=== PATIENT | female | born 1960 | race Caucasian/White ===

== ENCOUNTER 2022-06-26 09:04 | Emergency (ER) | payer BC, SELFPAY ==
[2022-06-26] VITALS (16 sets, daily range): BP systolic 113–130; BP diastolic 55–78; PULSE 87–103; RESP 12–25; TEMP 36.8; O2SAT 96–100
--- NOTE | ~2022-06-26 | CT_ITS ---
EXAMINATION: CT abdomen pelvis w con DATE: 06/26/2022 11:11 INDICATION: Diarrhea. Left upper quadrant abdominal pain. TECHNIQUE: Computed tomography (CT) of the abdomen and pelvis was performed with 100 mL Omnipaque 350 intravenous contrast. Automated exposure control and iterative reconstruction technique were employe d. The dose-length product was 916.56 mGy-cm. COMPARISON: None. FINDINGS: The visualized portions of the lung bases demonstrate mild atelectasis. No pleural effusion . The heart size is normal. No pericardial effusion. There is a 4 mm cyst in the liver. Calcification s in the spleen are consistent with old granulomatous disease. The gallbladder, pancreas, adrenal gla nds, and left kidney are normal. There is a 10 mm cyst in right kidney. There is a 4.5 cm cyst in rig ht ovary. There are no dilated loops of bowel. The appendix is normal. There is a 9 mm subserosal ek[place] rine fibroid. There are no pathologically enlarged lymph nodes. There is no free intraperitoneal flui d. There is severe lumbar spondylosis. IMPRESSION: 1. 4.5 cm cyst in right ovary, likely benign. Pelvis ultrasound is recommended in one year. Reviewed, dictated and finalized at location [facility]
[2022-06-26 09:26] LABS: Appearance Urine Clear (Clear); Bilirubin Urine Negative (Negative); Blood Urine 1+ (Negative); Color Urine Yellow (Yellow); Glucose Urine UA Negative (Negative); Ketones Urine Negative (Negative); Leukocyte Esterase Ur 1+ LEU/UL (Negative); Nitrate Urine Negative (Negative); Protein Urine Negative (Negative); Urobilinogen Urine 0.2 mg/dL (<2.0)
--- NOTE | 2022-06-26 09:26 | ED.NAVMDI ---
HPI - Nausea/Vomiting/Diarrhea General Chief complaint: Nausea/Vomiting/Diarrhea Stated complaint: diarrhea since Friday Time Seen by Provider: 06/26/22 09:07 Source: patient Mode of arrival: ambulatory Limitations: no limitations History of Present Illness HPI Narrative: Patient is a 62-year-old female who presents to the ED with report of diarrhea. Patient reports having persistent diarrhea since Friday. She reports having up to 10+ episodes of watery stool a day. She took Imodium yesterday which she reports slowed her symptoms somewhat. Denies any melena or rectal bleeding. Denies pain with bowel movements. She has had some intermittent nausea and left upper abdominal pain, but denies any pain currently. Denies any vomiting, fevers, urinary symptoms, CP, SOB, recent bad food exposure, or family members with similar symptoms. No recent antibiotics or foreign travel. Related Data Allergies Allergy/AdvReac Type Severity Reaction Status Date / Time anesthesia Allergy Vomiting Uncoded 06/26/22 10:51 Review of Systems Review of Systems: CONSTITUTIONAL: Denies fever, chills, or sweats. CARDIOVASCULAR: Denies chest pain, palpitations, or edema. RESPIRATORY: Denies cough or dyspnea. GASTROINTESTINAL: See HPI. GENITOURINARY: Denies dysuria or hematuria. All systems reviewed & are unremarkable except as noted in HPI and below PMFSH Past Medical History Medical History (Updated 06/26/22 @ 11:42 by Nely Vasquez PA-C) No pertinent past medical history Surgical History Surgical History (Updated 06/26/22 @ 10:12 by Nely Vasquez PA-C) No pertinent past surgical history Social History Social History (Updated 06/26/22 @ 10:13 by Nely Vasquez PA-C) Smoking status: Never smoker Exam Narrative: GENERAL: Well appearing, obese, non-toxic, in no acute distress. HEAD: Normocephalic, atraumatic. NECK: Supple. No adenopathy, no masses. RESPIRATORY: Airway patent, respirations nonlabored. Clear to auscultation bilaterally, no rales, rhonchi, wheezing. CARDIOVASCULAR: Regular rate and rhythm without murmurs, rubs, or gallops. Peripheral pulses 2+ and equal bilaterally. ABDOMINAL: Soft, mild discomfort in epigastric region, mild tenderness along LUQ, left anterior lateral rib cage, no palpable deformity, nondistended, no hepatosplenomegaly. Normoactive BS. MUSCULOSKELETAL: Moves all extremities. Strength/ROM intact without gross deformities. SKIN: Warm, dry, normal color. No rashes. NEURO: A&O X3. Speech clear. Cranial nerves II-XII grossly intact. Steady gait. No ataxic movements. PSYCHIATRIC: Appropriate mood and affect. Normal interaction. Course Vital Signs Vital signs: Vital Signs Pulse Rate 89 06/26/22 09:15 Respiratory Rate 17 06/26/22 09:15 Pulse Oximetry 97 06/26/22 09:15 Temperature 98.2 F 06/26/22 09:17 Pulse Rate 89 06/26/22 10:30 Respiratory Rate 15 06/26/22 10:30 Blood Pressure 118/77 06/26/22 10:30 Pulse Oximetry 97 06/26/22 10:30 Oxygen Delivery Room Air 06/26/22 09:17 MDM - Nausea/Vomiting/Diarrhea MDM Narrative Medical decision making narrative: Patient presented to ED with 3-day history of diarrhea. Vitals stable upon arrival. CBC and CMP without significant abnormalities. No leukocytosis. Stable electrolytes. Lipase within normal limits. UA with 1+ leuk esterase, 2+ bacteria, no WBC. Will send for culture. Patient without urinary symptoms at this time. CT scan of abdomen pelvis obtained without acute abnormalities. No bowel obstruction or abnormality. CT did show right ovarian cyst, which I made patient aware of, recommended outpatient follow-up within the next 1 year. Patient is actually visiting from [place] and is returning home tomorrow. I advised patient to follow with primary care doctor for further evaluation of diarrhea and PC TECHNICIAN for further evaluation of ovarian cyst. Attempted to have patient perform stool sample here, ania
[2022-06-26 09:35] LABS: Bacteria Urine 2+ /hpf; Mucus Urine Rare /lpf; RBC Urine 0-2 /hpf (0-2); Squamous Epithelial Cell Urine Occasional /hpf (Few); WBC Urine 0-3 /hpf
[2022-06-26 09:37] LABS: Add Urine Microscopic? YES
--- NOTE | 2022-06-26 09:39 | PC.NURSE ---
EDP at bedside to assess pt.
[2022-06-26 10:07] LABS: Basophils Percent Auto 0.3 % (0.2-1.2); Eosinophils Absolute Auto 0.1 K/mm3 (0-0.3); Eosinophils Percent Auto 1.2 % (0-4.4); Hematocrit 41.5 % (37.0-47.0); Hemoglobin 13.7 g/dL (12.0-15.0); Immature Granulocyte Absolute 0.03 K/mm3 (0.00-0.031); Immature Granulocyte Percent A 0.3 % (0-0.5); Lymphocytes Absolute Auto 1.52 K/mm3 (0.9-3.2); Lymphocytes Percent Auto 16.7 % (18.3-44.2); Mean Corpuscular Hemoglobin 29.8 pg (26-34); Mean Corpuscular Volume 90.2 fl (80-100); Mean Platelet Volume 10.6 fl (7.4-10.4); Monocytes Absolute Auto 0.8 K/mm3 (0.1-0.6); Monocytes Percent Auto 8.9 % (2.6-8.5); Neutrophils Absolute Auto 6.6 K/mm3 (1.3-6.7); Neutrophils Percent Auto 72.6 % (45.5-73.1); Platelet Count Result 233 k/mm3 (150-375); Red Cell Distribution Width 13.5 % (11.5-14.5); White Blood Count 9.1 K/mm3 (4.5-10.0)
[2022-06-26] MEDS: SODIUM CHLORIDE 0.9% IV 1,000 ML 999 ML IV CONT (10:29)
[2022-06-26] MEDS: ONDANSETRON INJ 4 MG/2 ML VIAL IV PUSH (10:29)
[2022-06-26 10:42] LABS: Alanine Aminotransferase 27 U/L (6-35); Albumin Level 4.8 g/dL (3.5-5.1); Alkaline Phosphatase 85 U/L (38-126); Anion Gap 6 mmol/L (8-16); Aspartate Amino Transferase 29 U/L (14-36); Bilirubin,Total 0.7 mg/dL (0.2-1.3); Blood Urea Nitrogen 10 mg/dL (7-17); Calcium 8.7 mg/dL (8.4-10.2); Carbon Dioxide 24 mmol/L (22-30); Chloride 106 mmol/L (98-107); Estimated CRCL calculation 77 ml/min; Estimated Glomerular Filt Rate > 60; Glucose 105 mg/dL (65-110); Lipase 91 U/L (23-300); Potassium 3.7 mmol/L (3.4-5.0); Sodium 136 mmol/L (137-145)
--- NOTE | 2022-06-26 11:05 | PC.NURSE ---
Patient off unit to CT.
== END 2022-06-26 12:00 | disposition home or self-care (01) ==
PROVIDERS: Emergency Provider Physician Assistant
DX: R19.7 Diarrhea, unspecified (principal); N83.201 Unspecified ovarian cyst, right side
CPT/HCPCS: 36415; 74177; 80053; 81001; 83690; 85025; 87086; 87088; 96361; 96374; 99284; J2405; J7030; Q9967